=== PATIENT | female | born 1990 | race Caucasian/White ===

== ENCOUNTER 2017-05-09 13:58 | Outpatient (CLI) ==
--- NOTE | 2017-05-09 15:14 | CT ---
EXAM: CT sinuses without contrast HISTORY: Recurrent sinus infection COMPARISON: None TECHNIQUE: CT sinuses performed without intravenous contrast. Coronal and sagittal reformatted imag es obtained. FINDINGS: Mastoid air cells clear. Temporal mandibular joints normally aligned. No fracture identi fied. Globes and retrobulbar structures unremarkable. Mild polypoid mucosal thickening left maxilla ry sinus likely mucous retention cyst. Right maxillary sinus clear. Sphenoid sinus as clear. Ethmo id air cells clear. Frontal sinuses clear. Mucoperiosteal thickening of the right ostiomeatal unit. No air-fluid levels paranasal sinuses. IMPRESSION: Mild chronic sinus mucosal changes as described.
== END 2017-05-09 13:59 | disposition home or self-care (01) ==
LOC: RAD 13:58
PROVIDERS: ATTEND Family Medicine
DX: J32.9 Chronic sinusitis, unspecified (principal)

== ENCOUNTER 2017-10-09 09:19 | Outpatient (CLI) | END 2017-10-09 09:20 | disposition home or self-care (01) | LOC: FCC-LAB 09:19 | PROVIDERS: ATTEND Nurse Practitioner Family | DX: R10.84 Generalized abdominal pain (principal); R11.2 Nausea with vomiting, unspecified | CPT/HCPCS: 36415; 80053; 81001; 81025; 82150; 83690; 85025; 86677 ==

== ENCOUNTER 2017-12-25 17:14 | Outpatient (CLI) | END 2017-12-25 17:15 | disposition home or self-care (01) | LOC: FCC-LAB 17:14 → LAB 17:15 | PROVIDERS: ATTEND Family Medicine | DX: R10.13 Epigastric pain (principal) | CPT/HCPCS: 36415; 80053; 83690; 85025; 87338 ==